=== PATIENT | male | born 1950 | race Caucasian/White ===

== ENCOUNTER → 2017-01-16 | Outpatient (CLI) | payer MEDICARE, BC ==
[~2017-01-16] MED LIST: ASPIRIN EC81 MG PO; COREG 12.5MG12.5 MG PO; VITAMIN C 500500 MG PO
== END ==
LOC: KOH-I 12:34
DX: J18.9 Pneumonia, unspecified organism (principal); R91.8 Other nonspecific abnormal finding of lung field
CPT/HCPCS: 71020

== ENCOUNTER 2021-07-08 13:18 | Emergency (ER) | payer SELFPAY ==
[~2021-07-08] VITALS: Ht 170.2 cm; Wt 96.6 kg
[~2021-07-08 13:18] MED LIST changes: +ACID CONTROL150 MG PO; +ALPRAZOLAM0.5 MG PO; +ATORVASTATIN CA40 MG PO; +COLACE100 MG PO; +DAILY MULTIPLE1 EAC1 PO; +ECOTRIN81 MG PO; +ENTRESTO 24 MG1 EACH PO; +FLEXERIL 10 MG10 MG PO; +FLONASE 0.05% N16 GM; +GLUCOPHAGE500 MG PO; +LEVAQUIN500 MG PO; +MYCOLOG II CREA15 GM TD; +NITROSTAT0.4 MG PO; +NORCO 5-325 TA1 EACH PO; +SINGULAIR10 MG PO; +SYMBICORT 160-1 INHA INH; +VENLAFAXINE HCL75 M1 PO; +VITAMIN D350000 UNIT PO; +VOLTAREN GEL TD; +ZETIA 10 MG TAB10 MG PO
== END 2021-07-08 16:25 | disposition home or self-care (01) ==
LOC: ER1 13:18
DX: Z23 Encounter for immunization (principal); U07.1 COVID-19; I10 Essential (primary) hypertension; Z95.5 Presence of coronary angioplasty implant and graft; Z91.048 Other nonmedicinal substance allergy status; Z88.8 Allergy status to other drugs, medicaments and biological substances
CPT/HCPCS: 99283; M0243